=== PATIENT | female | born 1930 | race Caucasian/White ===

== ENCOUNTER 2021-10-20 13:27 | Outpatient (CLI) | payer MEDICARE ==
[~2021-10-20 13:27] MED LIST: Magnevist 469MG/ML 20 ML VIAL ONE
== END 2021-10-20 13:28 | disposition home or self-care (01) ==
LOC: MRI 13:27
PROVIDERS: ATTEND Family Medicine
DX: N28.89 Other specified disorders of kidney and ureter (principal)
CPT/HCPCS: 74183; A9579

== ENCOUNTER 2022-02-02 15:18 | Outpatient (CLI) | payer MEDICARE | END 2022-02-02 15:19 | disposition home or self-care (01) | LOC: BICULT 15:18 | PROVIDERS: ATTEND Urology | DX: N28.89 Other specified disorders of kidney and ureter (principal) | CPT/HCPCS: 76770 ==

== ENCOUNTER 2022-05-07 10:57 | Outpatient (CLI) | payer MEDICARE | END 2022-05-07 10:58 | disposition home or self-care (01) | LOC: BICCT 10:57 | PROVIDERS: ATTEND Urology | DX: N28.89 Other specified disorders of kidney and ureter (principal); K57.30 Diverticulosis of large intestine without perforation or abscess without bleeding; K44.9 Diaphragmatic hernia without obstruction or gangrene | CPT/HCPCS: 74160; 82565 ==